=== PATIENT | female | born 1970 | race Caucasian/White ===

== ENCOUNTER 2021-03-22 13:53 | Emergency (ER) | payer SELFPAY ==
[~2021-03-22] VITALS: Ht 160 cm; Wt 52.0 kg
[2021-03-22 13:58] VITALS: BP 148/79
[2021-03-22] MEDS ORDERED: ORPHENADRINE CITRATE 60 MG/2 ML VIAL. IM ONE (14:45)
--- NOTE | 2021-03-22 15:09 | PHYS DOC ---
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 She states it kind of spiderweb out. She states that she kind of slid down to the floor because it hurt. She denies loss of bowel or bladder, focal weakness, numbness or tingling, abdominal pain, nausea, vomiting, hitting her head, syncope or dizziness. EMS brought her and gave her 50 mics of fentanyl which lowered her pain to 6 out of 10. Denies any radiation of the pain down her legs. She states she has had an episode like this before in the past. Patient also has a history of breast augmentation, seasonal allergies and smoker. (MORALES SHIPLEY [employer] OPERATOR) Review of Systems: Review of Systems: Constitutional: Denies fever or chills. [] Eyes: Denies change in visual acuity. [] HENT: Denies nasal congestion or sore throat. [] Respiratory: Denies cough or shortness of breath. [] Cardiovascular: Denies chest pain or edema. [] GI: Denies abdominal pain, nausea, vomiting, bloody stools or diarrhea. [] : Denies dysuria. [] Musculoskeletal: + Mid low back pain or denies joint pain. [] Integument: Denies rash. [] Neurologic: Denies headache, focal weakness or sensory changes. [] Endocrine: Denies polyuria or polydipsia. [] Lymphatic: Denies swollen glands. [] Psychiatric: Denies depression or anxiety. [] (MORALES SHIPLEY [employer] OPERATOR) Heart Score: C/O Chest Pain: No Risk Factors: Risk Factors: DM, Current or recent (<one month) smoker, HTN, HLP, family history of CAD, obesity. Risk Scores: Score 0 - 3: 2.5% MACE over next 6 weeks - Discharge Home Score 4 - 6: 20.3% MACE over next 6 weeks - Admit for Clinical Observation Score 7 - 10: 72.7% MACE over next 6 weeks - Early Invasive Strategies [facility] Current Medications: Current Medications Medications (Trade) Dose Ordered Sig/Norah Start Time Stop Time Status Last Admin Dose Admin Orphenadrine Citrate (Norflex) 60 mg 1X ONCE 03/22/21 14:45 03/22/21 14:46 DC [facility] Allergies: Allergies: Allergies Coded Allergies Type Severity Reaction Last Updated Verified Penicillins Allergy Unknown 03/22/21 Yes [facility] Physical Exam: PE: Constitutional: Well developed, well nourished, no acute distress, non-toxic appearance. [] HENT: Normocephalic, atraumatic, bilateral external ears normal, oropharynx moist, no oral exudates, nose normal. [] Eyes: PERRLA, EOMI, conjunctiva normal, no discharge. [] Neck: Normal range of motion, no tenderness, supple, no stridor. [] Cardiovascular:Heart rate regular rhythm, no murmur [] Lungs & Thorax: Bilateral breath sounds clear to auscultation [] Abdomen: Bowel sounds normal, soft, no tenderness, no masses, no pulsatile masses. [] Skin: Warm, dry, no erythema, no rash. [] Back: No tenderness, no CVA tenderness. [] Extremities: No tenderness, no cyanosis, no clubbing, ROM intact, no edema. [] Neurologic: Alert and oriented X 3, normal motor function, normal sensory function, no focal deficits noted. [] Psychologic: Affect normal, judgement normal, mood normal. Normal physical exam [] [facility] Current Patient Data: Vital Signs: Vital Signs Date Time Temp Pulse Resp B/P (MAP) Pulse Ox O2 Delivery O2 Flow Rate FiO2 03/22/21 13:58 98.3 70 12 148/79 (102) 96 Room Air 98.3 [facility] EKG: EKG: [] [facility]) Radiology/Procedures: Radiology/Procedures: [] Impression: [facility] [address] [place] [address] IMAGING REPORT Signed PATIENT: CLAUDIA AGUERO ACCOUNT: [id number] : 1970 LOCATION: ER AGE: 50 SEX: F EXAM STATUS: REG ER ORD. PHYSICIAN: MORALES SHIPLEY APRN REASON: pain after bending over PROCEDURE: CT LUMBAR SPINE WO CONTRAST Exam: CT lumbar spine without contrast INDICATION: Pain after bending over TECHNIQUE: Sequential axial images through the lumbar spine obtained without IV contrast. Sagittal and coronal reformatted images were reconstructed from the axial data and reviewed. Exposure: One or more of the following in the visualized dose reduction techniques were utilized for this examination: 1. Automated exposure control 2. Adjustment of the MA and/or KV according to patient size 3. Use of iterative of reconstructive technique Comparisons: None FINDINGS: Straightening of the lumbar spine demonstrate positional. Vertebral body heights are well-maintained. Fracture to the lumbar spine is not identified. Mild spondylotic change in the lumbar spine with broad-based disc bulge at L3-L4 , L4-L5 and L5-S1 without significant neuroforaminal or spinal canal stenosis. Visualized paraspinal soft tissues are unremarkable. IMPRESSION: Mild spondylotic changes lumbar spine as described above. Electronically signed by: Dwayne Love MD (03/22/2021 3:14 PM) [facility] DICTATED and SIGNED BY: DWAYNE LOVE MD DATE: 03/22/21 [id number] (MORALES SHIPLEY APRN) Course & Med Decision Making: Course & Med Decision Making Pertinent Labs and Imaging studies reviewed. (See chart for details) See HPI. Alert and oriented x4. Patient can move her legs in all extremities. She is sitting straight up. Patient is able to walk but it hurts to stand up straight. She is steady on her feet. There is no focal weaknesses. No focal bony spinal tenderness. No loss of bowel bladder. No saddle paresthesia. Speaks in full clear sentences. Skin pink warm and dry. No deformity or swelling or bruising to her spine. [] (MORALES SHIPLEY APRN) Dragon Disclaimer: Dragon Disclaimer: This electronic medical record was generated, in whole or in part, using a voice recognition dictation system. (MORALES SHIPLEY APRN) Departure Departure Impression: Primary Impression: Low back strain Qualified Codes: S39.012A - Strain of muscle, fascia and tendon of lower back, initial encounter Disposition: HOME / SELF CARE / HOMELESS Condition: STABLE Patient Instructions: Low Back Strain with Rehab-Sports[facility] Additional Instructions: Follow-up with primary care provider. Use ice and heat to help with pain. Take medication as prescribed and with food. Use medication can you sleepy. Do not drive or operate any heavy machinery while on these medications. Scripts Hydrocodone Bit/Acetaminophen (HYDROCODONE-APAP 5-325 ) 1 Tab Tablet 1 TAB PO PRN Q6HRS PRN for PAIN, #8 TAB 0 Refills Prov: MORALES SHIPLEY APRN 03/22/21 Orphenadrine Citrate (ORPHENADRINE CITRATE) 100 Mg Tablet.er 1 TAB PO BID for 5 Days, #10 TAB Prov: MORALES SHIPLEY APRN 03/22/21 Attending Signature Attending Signature I have reviewed the PA/[employer]'s note and plan of care. I was available for consultation as needed during the patient's visit in the emergency department. I agree with the clinical impression, plan, and disposition. (DAYO GONSALVES DO) MORALES SHIPLEY APRN Mar 22, 2021 15:09 DAYO GONSALVES DO Mar 23, 2021 14:37
--- NOTE | 2021-03-22 15:16 | RAD ---
Exam: CT lumbar spine without contrast INDICATION: Pain after bending over TECHNIQUE: Sequential axial images through the lumbar spine obtained without IV contrast. Sagittal an d coronal reformatted images were reconstructed from the axial data and reviewed. Exposure: One or more of the following in the visualized dose reduction techniques were utilized for this examination: 1. Automated exposure control 2. Adjustment of the MA and/or KV according to patient size 3. Use of iterative of reconstructive technique Comparisons: None FINDINGS: Straightening of the lumbar spine demonstrate positional. Vertebral body heights are well-maintained. Fracture to the lumbar spine is not identified. Mild spondylotic change in the lumbar spine with broad-based disc bulge at L3-L4, L4-L5 and L5-S1 wit hout significant neuroforaminal or spinal canal stenosis. Visualized paraspinal soft tissues are unremarkable. IMPRESSION: Mild spondylotic changes lumbar spine as described above. Electronically signed by: Dwayne Leary MD (03/22/2021 3:14 PM) DONY
[2021-03-22] MEDS ORDERED: HYDR-2761 PO (15:23)
[2021-03-22] MEDS ORDERED: ORPH100T PO (15:23)
[2021-03-22] MEDS ORDERED: methylPREDNISolone SOD SUCC PF 125 MG/2 ML VIAL. IV ONE (16:00)
== END 2021-03-22 15:58 | disposition home or self-care (01) ==
LOC: ER 13:53
DX: S39.012A Strain of muscle, fascia and tendon of lower back, initial encounter (principal); F17.200 Nicotine dependence, unspecified, uncomplicated; Z98.890 Other specified postprocedural states; Z88.0 Allergy status to penicillin; X50.9XXA Other and unspecified overexertion or strenuous movements or postures, initial encounter; Y93.89 Activity, other specified; Y92.89 Other specified places as the place of occurrence of the external cause; Y99.8 Other external cause status
CPT/HCPCS: 72131; 96372; 99284; J2360